=== PATIENT | female | born 1930 | race Caucasian/White ===

== ENCOUNTER → 2016-12-31 | Outpatient (CLI) | payer OTHER | LOC: RAD 04:08 | DX: R92.8 Other abnormal and inconclusive findings on diagnostic imaging of breast (principal) ==

== ENCOUNTER 2017-10-05 14:26 | Emergency (ER) | payer OTHER ==
[~2017-10-05] VITALS: Ht 157.5 cm; Wt 47.6 kg
[2017-10-05 17:36] VITALS: BP 137/62
== END 2017-10-05 17:40 | disposition home or self-care (01) ==
LOC: ER 14:26
DX: H53.40 Unspecified visual field defects (principal); Z88.2 Allergy status to sulfonamides

== ENCOUNTER → 2019-04-23 | Outpatient (CLI) | payer OTHER | LOC: NUC 10:00 | DX: M81.0 Age-related osteoporosis without current pathological fracture (principal); N91.2 Amenorrhea, unspecified; Z78.0 Asymptomatic menopausal state ==